=== PATIENT | female | born 1960 | race African-American/Black ===

== ENCOUNTER 2019-02-12 09:00 | Inpatient (IN) | payer MEDICARE, MEDICAID ==
[2019-02-15] MEDS ORDERED: METOCLOPRAMIDE 10 MG TABLET PO ONE (06:00)
[2019-02-15] MEDS ORDERED: ACETAMINOPHEN 1,000 MG/100 ML BTL IVPB ONE (06:00)
[2019-02-15] MEDS ORDERED: CEFAZOLIN 2 Gram 2 GM/50 ML BAG IVPB SCH (06:00)
[2019-02-15] MEDS ORDERED: FAMOTIDINE 20MG TABLET PO ONE (06:00)
[2019-02-15] MEDS ORDERED: SCOPOLAMINE 1 PATCH TDSY TD ONE (06:00)
[2019-02-15] MEDS ORDERED: CELECOXIB 100 MG CAPSULE PO ONE (06:00)
[2019-02-15] MEDS ORDERED: TRAMADOL HCL 50 MG TABLET PO PRN ×2 (08:03)
[2019-02-15] MEDS ORDERED: AL HYDROX/MAG HYDROX 30ML UD PO PRN (08:03)
[2019-02-15] MEDS ORDERED: KETOROLAC 30 MG/ML VIAL IVP PRN ×2 (08:03)
[2019-02-15] MEDS ORDERED: PROMETHAZINE HCL 12.5 MG in 0.9 % SODIUM CHLORIDE 100ML 50 ML IVPB PRN (08:03)
[2019-02-15] MEDS ORDERED: BISACODYL 10 MG SUPP RC PRN (08:03)
[2019-02-15] MEDS ORDERED: METOCLOPRAMIDE HCL 10 MG/2 ML VIAL IVP PRN (08:03)
[2019-02-15] MEDS ORDERED: ACETAMINOPHEN 325 MG TAB PO PRN (08:03)
[2019-02-15] MEDS ORDERED: DIPHENHYDRAMINE HCL 25 MG CAPSULE PO PRN (08:03)
[2019-02-15] MEDS ORDERED: HYDROCODONE/APAP 7.5/325MG TABLET PO PRN (08:03)
[2019-02-15] MEDS ORDERED: MAGNESIUM HYDROXIDE 30 ML UDC PO PRN (08:03)
[2019-02-15] MEDS ORDERED: ACETAMINOPHEN W/ CODEINE 300MG/30MG TABLET PO PRN ×2 (08:03)
[2019-02-15] MEDS ORDERED: HYDROMORPHONE HCL 2 MG/ML VIAL IM PRN ×2 (08:03)
[2019-02-15] MEDS ORDERED: ACETAMINOPHEN W/ CODEINE 300MG/60MG TABLET PO PRN ×2 (08:03)
[2019-02-15] MEDS ORDERED: HYDROCODONE/APAP 5/325MG TABLET PO PRN ×2 (08:03)
[2019-02-15] MEDS ORDERED: ONDANSETRON HCL IV 4 MG/2 ML VIAL IVP PRN (08:03)
[2019-02-15] MEDS ORDERED: NALOXONE 0.4 MG/1 ML VIAL IVP PRN (08:03)
[2019-02-15] MEDS ORDERED: ZOLPIDEM TARTRATE 5 MG TABLET PO PRN (08:03)
[2019-02-15] MEDS ORDERED: ALPRAZOLAM 1 MG TAB PO ONE (08:30)
[2019-02-15] MEDS ORDERED: RINGERS SOLUTION,LACTATED 1,000 ML IV ONE ×3 (08:55→12:08)
[2019-02-15] MEDS: VANCOMYCIN HCL 1 MG in DEXTROSE 5 % IN WATER 250 ML IVPB ONE ×4 (09:02→09:09)
[2019-02-15 09:15] LABS: ABO GROUP O; RH TYPE POSITIVE
[2019-02-15 09:16] LABS: ANTIBODY SCREEN NEGATIVE (NEGATIVE)
[2019-02-15] MEDS ORDERED: BUPIVACAINE LIPOSOME 266MG/20ML VIAL SQ ONE (10:59)
[2019-02-15] MEDS ORDERED: BUPIVACAINE 0.5% W/EPI MPF 30 ML VIAL SQ ONE (10:59)
[2019-02-15] MEDS ORDERED: VANCOMYCIN HCL 3,000 MG in RINGERS SOLUTION,LACTATED 3,000 ML IVPB ONE (10:59)
[2019-02-15] MEDS ORDERED: ALBUTEROL HFA 8 GM INHALER INH PRN (13:25)
[2019-02-15] MEDS: HYDROCODONE/APAP 7.5/325MG TABLET PO PRN ×2 (14:07→21:19)
[2019-02-15] MEDS ORDERED: VANCOMYCIN HCL 1 GM VIAL IVPB ONE (15:30)
[2019-02-15] MEDS ORDERED: TRANEXAMIC ACID 1,000 MG/10 ML ML IV ONE (15:30)
[2019-02-15] MEDS ORDERED: MIDAZOLAM HCL 2MG/2ML VIAL IV ONE (15:49)
[2019-02-15] MEDS ORDERED: EPHEDRINE SULFATE 50 MG/ML ML IV ONE (15:49)
[2019-02-15] MEDS ORDERED: PROPOFOL 10 MG/ML VIAL IV ONE (15:49)
[2019-02-15] MEDS ORDERED: 0.9 % SODIUM CHLORIDE 10 ML VIAL IVP ONE (15:49)
[2019-02-15] MEDS ORDERED: FENTANYL PF 100MCG/2ML VIAL IV ONE (15:49)
[2019-02-15] MEDS ORDERED: LIDOCAINE 2% MDV (20MG/ML) 20ML VIAL IV ONE (15:49)
--- NOTE | 2019-02-15 17:24 | Rehab Evaluation ---
Patient Information - Patient Information Diagnosis: L hip OA Ordered Treatment: PT Evaluate and Treat Status: Initial Evaluation Surgery: Yes (L THR) Date of Surgery: 02/15/19 Past Medical/Surgical Hx: PAST MEDICAL/SURGICAL HISTORY Past Surgical History C SCOPE PMH - Respiratory Hx Respiratory Disorders Yes Hx Chronic Obstructive Yes: MILD RARELY USES INHALER Pulmonary Disease (COPD) Comment: SMOKERS COUGH PMH - Cardiovascular Hx Cardiovascular Disorders No Exercise Tolerance Fair PMH - Neuro Hx Neurological Disorders No PMH - GI Hx Gastrointestinal Disorders Yes Comment: CHRONIC CONSTIPATION LAXATIVE DEPENDENT PMH - Hx Genitourinary Disorders No Hx Age of Menopause 51 PMH - Endocrine Hx Endocrine Disorders No Hx Diabetes No Hx Thyroid Disease No PMH - Musculoskeletal Hx Musculoskeletal Disorders Yes Hx Arthritis Yes Comment: RIGHT SHOULDER PAIN RECENTLY PMH - Psych Hx Psychiatric Problems Yes Hx Anxiety Yes: ON MEDS PMH - Hematology/Oncology Hx Hematology/Oncology No Disorders Premorbid Status: Detail (The patient was independent with all mobility prior to surgery.) Social History: Detail (The patient lives alone in a 2 story house with 4 steps at the enterance and 2 railings. The bathroom is equipped with a tub/shower combination,shower bench, standard toilet with a riser seat. Grab bars are present in the shower but not near the toilet. The patient has a front wheeled walker.) Precautions: Stamps, Fall, Other (WBAT, THR precautions) - Time With Patient Total Time Spent With Patient (Min): 20 Treatment Procedures: Detail (Initial Evaluation, bed mobility) Subjective Information - Subjective Information Per Patient (The patient has complaints of L hip pain but did not rate pain using 0-10 pain scale. The patient complained of lightheadedness when sitting up.) Objective Data - Mental Status Patient Orientation: Oriented x3 - Visual Perception Appears within normal limits for therapeutic activities - ROM Not within normal limits (The patient's L hip is within total hip precautions.) - Strength/Tone Not within normal limits (The patient's L LE strength was not tested s/p surgery however was functional ie: patient was able to lift L LE in and out of bed. The paitent's R LE strength was WNL.) - Bed Mobility Independent (The patient was independent with supine to and from sit transfer and scooting up in bed with use of trapeze.) - Transfers Needs Assist (The patient sat on the edge of the bed and complained of lightheadedness. The patient sat on the edge of the bed for 5 minutes and lightheadedness did not subside. The patient began sweating and requested to lie down.) - Balance Balance Sitting: Good - Gait Detail (The patient did not ambulate due to lightheadedness.) Therapy Assessment - Therapy Assessment Detail (The patient was independent with bed mobility but was unable to stand or ambulate due to symptoms of lightheadedness. The patient was moving in pain and time and required verbal reminders to maintain THR. The patient was left in a supine position with pillow in place to maintain THR alignment. Feel the patient will progress well once symptoms of lightheadedness subsides.) Patient Education - Patient Education Teaching Topic: Precautions (The patient requires verbal cues to maintain hip precautions.) Response: Reinforcement Needed Teaching Method: Discussion Teaching Recipient: Patient, Family Barriers To Learning: Age Related Problem List - Problem List Physical Therapy Problem List: Detail (1) Decreased L LE strength 2) Impaired ambulation and transfers s/p THR) Goals - Goals Physical Therapy Goals: 1) The patient will ambulate independently with appropriate assistive device community distances, WBAT on the L LE. 2) The patient will ambulate on stairs using proper technique with supervision for safety. 3) The patient will demonstrate good understanding of THR precautions and be independent with THR HEP. Plan - Plan Physical Therapy Plan: PT 1-2 times a day until all inpatient PT goals have been met, for gait and transfer training and instruction in THR HEP.
[2019-02-15] MEDS: DEXTROSE 5 % AND 0.9 % NACL 1,000 ML IV PRN (19:30)
[2019-02-15] MEDS: VANCOMYCIN HCL 1,000 MG in 0.9 % SODIUM CHLORIDE 250ML 250 ML IVPB SCH (21:11)
[2019-02-15] MEDS: DOCUSATE SODIUM 100 MG CAPSULE PO SCH (21:13)
[2019-02-15] MEDS: ALPRAZOLAM 0.25 MG TABLET PO SCH (21:13)
[2019-02-15] MEDS: FERROUS SULFATE 325 MG TAB PO SCH (21:14)
[2019-02-16] MEDS: HYDROCODONE/APAP 7.5/325MG TABLET PO PRN ×2 (03:23→10:15)
[2019-02-16] MEDS: DEXTROSE 5 % AND 0.9 % NACL 1,000 ML IV PRN (05:26)
--- NOTE | 2019-02-16 05:30 | RADIOLOGY REPORT ---
EXAM: LEFT HIP HISTORY: POSTOP LEFT HIP ARTHROPLASTY. TECHNIQUE: A single AP view of the left hip was obtained. Comparison: None. FINDINGS: Left hip total arthroplasty hardware appears intact and in expected alignment on this single view. No fracture visualized. Adjacent soft tissue lucencies likely represent postoperative soft tissue gas. IMPRESSION: ABOVE. JOB NUMBER: [id number] MTDD
[2019-02-16 06:28] LABS: HEMOGLOBIN 9.4 gm/dl (11.6-16.0)
[2019-02-16] MEDS: VANCOMYCIN HCL 1,000 MG in 0.9 % SODIUM CHLORIDE 250ML 250 ML IVPB SCH (08:17)
--- NOTE | 2019-02-16 09:57 | Physical Therapy Tx Note ---
Physical Therapy Tx Note - Treatment Note Tolerated: Good Total Time Spent With Patient: 25 Physical Therapy Tx Note: Detail (The patient was in bed when PT arrived and complaining of less pain then initially. Patient also had no complaints of lightheadedness. The patient was independent with supine to sit transfer with use of bed railings. The patient ambulated with front wheeled walker a distance of 108 feet x 1 WBAT on L LE independently. The patient was instructe to use strap for sit to supine transfer and completed transfer indpendently. The patient ambulated on 3 steps with use of one railing and folded walker using proper technique with supervision for safety. The patient completed the following THR exercises: heel slides, ankle pumps, quad sets, hamstrings sets, hip abduction supine and gluteal sets. The patient was able to indentify the hip precautions but required occasional verbal cues not to turn foot in. The patient has met all inpatient PT goals and is discharged from inpatient PT.) Physical Therapy Problem List: Detail (1) Decreased L LE strength 2) Impaired ambulation and transfers s/p THR) Physical Therapy Goals: 1) The patient will ambulate independently with appropriate assistive device community distances, WBAT on the L LE. (Goal Met). 2) The patient will ambulate on stairs using proper technique with supervision for safety.(Goal Met). 3) The patient will demonstrate good understanding of THR precautions and be independent with THR HEP. (Goal Met) Physical Therapy Plan: The patient has met all inpatient PT goals and is discharged from inpatient PT. Patient is to receive Home PT.
[2019-02-16] MEDS ORDERED: RIVAROXABAN 10 MG TABLET PO SCH (10:00)
[2019-02-16] MEDS ORDERED: CELECOXIB 100 MG CAPSULE PO SCH (10:00)
[2019-02-16] MEDS: DOCUSATE SODIUM 100 MG CAPSULE PO SCH (10:13)
[2019-02-16] MEDS: ALPRAZOLAM 0.25 MG TABLET PO SCH (10:13)
[2019-02-16] MEDS: FERROUS SULFATE 325 MG TAB PO SCH (10:14)
--- NOTE | 2019-02-16 10:35 | Rehab Evaluation ---
Patient Information - Patient Information Diagnosis: L hip OA Ordered Treatment: OT Evaluate and Treat Status: Initial Evaluation Surgery: Yes (L THR) Date of Surgery: 02/15/19 Past Medical/Surgical Hx: PAST MEDICAL/SURGICAL HISTORY Past Surgical History C SCOPE PMH - Respiratory Hx Respiratory Disorders Yes Hx Chronic Obstructive Yes: MILD RARELY USES INHALER Pulmonary Disease (COPD) Comment: SMOKERS COUGH PMH - Cardiovascular Hx Cardiovascular Disorders No Exercise Tolerance Fair PMH - Neuro Hx Neurological Disorders No PMH - GI Hx Gastrointestinal Disorders Yes Comment: CHRONIC CONSTIPATION LAXATIVE DEPENDENT PMH - Hx Genitourinary Disorders No Hx Age of Menopause 51 PMH - Endocrine Hx Endocrine Disorders No Hx Diabetes No Hx Thyroid Disease No PMH - Musculoskeletal Hx Musculoskeletal Disorders Yes Hx Arthritis Yes Comment: RIGHT SHOULDER PAIN RECENTLY PMH - Psych Hx Psychiatric Problems Yes Hx Anxiety Yes: ON MEDS PMH - Hematology/Oncology Hx Hematology/Oncology No Disorders Premorbid Status: Detail (The patient was independent with all mobility prior to surgery using a cane. She had home health care 2x/day every day including weekends to assist with showering, dressing, and all IADLs.) Social History: Detail (The patient lives alone in a 2 story house with 4 steps at the enterance and 2 railings. The bedroom and bath are on the main level with laundry basement. The bathroom is equipped with a tub/shower combination, shower chair, grab bar in the shower, a hand-held shower, and a standard toilet with a riser seat. She has a raised toilet seat with grab bars that she plans to have her son put over the toilet at [place]. She also has a beef grader. The patient has a front wheeled walker and a cane.) Precautions: Childs, Fall, Other (WBAT, THR precautions) - Time With Patient Total Time Spent With Patient (Min): 42 (1 eval 1 ADL) Treatment Procedures: Detail (ot eval: low complexity) Subjective Information - Subjective Information Per Patient (ok to see per SWEETIE Bull. Pt agreeable to OT eval and Tx. Friend present.) Objective Data - Pain Pain Present: Yes Pain Scale Used: Numeric (1 - 10) (6/10 L hip - Pt just received pain meds) - Mental Status Patient Orientation: Oriented x3 - Visual Perception Appears within normal limits for therapeutic activities - ROM Within normal limits - Strength/Tone Within normal limits - Coordination Appears within normal limits for therapeutic activities - Bed Mobility Independent (supine >< sit indep with increased time) - Transfers Independent (sit >< stand to FWW) - Balance Balance Sitting: Good Balance Standing: Good - Sensation Intact - Gait Detail (Fxl amb within bedroom with FWW and supervision) - ADL's/IADL's Detail (OT educ. Pt on hip prec., adaptive tech and use of AE for LB dress, mod. tech for sit >< stand from low surfaces to maintain hip prec., AD for toilet for bathroom and safe use - RTS, GB, shower chair, mod. techs for kitchen , bathroom, and laundry safety at home with use of FWW. Pt demos and verbalizes understanding throughout Tx. Will have 24/7 assist from son and/or sister at [place] and daily HHC per Pt.) Therapy Assessment - Therapy Assessment Detail (Pt demos safety and modified indep. with LB dressing and fxl ambulation and TFs and verbalizes safe tech. for home tasks while maintaining L LYUBOV prec.) Problem List - Problem List Physical Therapy Problem List: Detail (1) Decreased L LE strength 2) Impaired ambulation and transfers s/p THR) Occupational Therapy Problem List: Detail (No further inpatient OT needs identified.) Goals - Goals Physical Therapy Goals: 1) The patient will ambulate independently with appropriate assistive device community distances, WBAT on the L LE. (Goal Met). 2) The patient will ambulate on stairs using proper technique with supervision for safety.(Goal Met). 3) The patient will demonstrate good understanding of THR precautions and be independent with THR HEP. (Goal Met) Occupational Therapy Goals: No further inpatient OT needs/goals identified. Prognosis - Prognosis Good Plan - Plan Physical Therapy Plan: The patient has met all inpatient PT goals and is discharged from inpatient PT. Patient is to receive Home PT. Occupational Therapy Plan: No further inpatient OT needs identified. Pt has all necessary equipment. Rec DC home with son and/or sister assist PRN upon DC. DC inpatient OT services. Thank you for this referral.
[2019-02-16] MEDS ORDERED: 0.9 % SODIUM CHLORIDE 10 ML VIAL IVP ONE (13:19)
[2019-02-16] MEDS ORDERED: TRANEXAMIC ACID 1,000 MG/10 ML ML IV ONE (13:19)
--- NOTE | 2019-02-18 08:51 | Operative Note ---
DATE OF SERVICE: 02/15/2019. DATE OF SURGERY: 02/15/2019. PREOPERATIVE DIAGNOSIS: End-stage left hip arthrosis. POSTOPERATIVE DIAGNOSIS: End-stage left hip arthrosis. OPERATION: Left total hip arthroplasty, uncemented. SURGEON: Evans El MD. ANESTHESIA: Spinal. ANESTHESIA PROVIDER: Zev Mccurdy CRNA. COMPLICATIONS: None. ESTIMATED BLOOD LOSS: 200 mL. OPERATIVE FINDINGS: Severe [id number] hip arthrosis. COMPONENTS PLACED: A [employer] Synergy total hip arthroplasty system, proximally porous coated, size 14 femoral stem, high offset, with a 52 mm 3 hole Reflection acetabular shell component with 1 acetabular screw, 2 screw caps, a centrally threaded screw cap, a 35 degree high-crosslinked polyethylene liner, and a 32 + 0 mm Oxinium femoral head component, and then 1 g vancomycin powder. INDICATION FOR OPERATION: This is a 59-year-old female who has had persistent pain and dysfunction her hips for several years. Both hips failed nonoperative treatment. Scheduled for hip replacement. I explained all risks and benefits of surgery in detail for her diagnosis and procedures, including, but not limited to, infection, nerve injury, vessel injury, persistent pain, stiffness, numbness, tingling, blood clot, need for anticoagulation to prevent blood clots and the risks associated with these medications, need for further procedures, limb length discrepancy. PROCEDURE: The patient was brought to the OR. After spinal anesthesia was induced, her right leg was placed in right leg menjivar. The left hip and left lower extremity were prepped and draped in a sterile fashion. Prepped using ChloraPrep and draped. An intraoperative time out. Next, a posterior approach was marked over the gluteus area. It was infiltrated with 0.5% Marcaine with epi/tranexamic acid/Exparel mixture. Skin and subcutaneous tissue dissected down to the gluteal fascia. Gluteal fascia split longitudinally. Subgluteal plane was bluntly dissected. Self retainer was brought in. Dissection down to the subgluteal plane. Brought in the self retainer. Identified the sciatic nerve with care to protect it at all times. Released the capsule and short external rotators, incised the capsule in inverted T-fashion, then dislocated the femoral head. Femoral head severely deformed. There was no cartilage, and bullet-shaped deformity. Resection the femoral head about 1.5 cm above the lesser trochanter. Took off the short external rotator tendon stumps. Inserted the box osteotome. Then started reaming in 1 mm increments, first one by hand, until we reamed up to a size 14. We stopped there. We broached a 12 calcar plane, then a 13 and a 14, and had good fit, and we stopped there. Next, attention turned to the acetabulum. Released the capsule anteriorly and placed a retractor there, and periacetabular retractor. We removed some of the acetabulum, labrum around the periphery of the hip. Next, started reaming in 1 mm increments, 45 degrees inclination, 20 degrees anteversion until we reamed up to a size 51 mm shell. We tried a 52 mm and had a good fit, and we stopped there, and that is the one that we utilized. Next, we changed gloves, brought in clean sheet, copiously irrigated the acetabulum. Then we impacted down the real acetabular shell using the helicopter guide in same orientation, 45 degrees inclination, 20 degrees anteversion, until it was flush medially. Next, drilled the posterior central superior quadrant screw hole, measured a 40 mm screw, inserted the screw. It had excellent purchase and a good bone. Next, we placed the trial liner, placed the trial stem, did a trial reduction. Best combination of range of motion, stability, and leg lengths was with a high- offset, 35-degree hooded liner, 32 + 0 mm head. This allowed for symmetric leg lengths, good abductor tensioning without over-stopping, and stability with extension and external rotation. This was the size we used. Next, we removed all trial components, irrigated the acetabulum copiously, placed 2 screw caps, center threaded screw cap, and impacted down the real 35- degree hooded, high-crosslinked polyethylene liner with the bains in the posterior superior quadrant, tapped that down until interlocked. Next, we irrigated the femoral canal copiously and then impacted down the real press fit stem in 15 degrees of anteversion as we broached until it was flush with our medial and proximal bead line. Cleaned and dried the trunnion. We placed vancomycin powder in the canal and around the stem, too, during impaction and entry. Next, impacted down the femoral head component, reduced the hip. Final range of motion revealed the same. Leg lengths were equal. Irrigated copiously. Closed the gluteal fascia with running #2 Stratafix suture and closed the skin with 2-0 Vicryl, and a provisional sterile dressing applied with Acticoat. It will be converted to a STUART dressing prior to discharge. Patient tolerated the procedure well. No intraoperative complications. Placed an abduction pillow. Postop x-ray revealed good orientation of components. CC: MD SIL Noe
== END 2019-02-16 13:20 | disposition home health service (06) | DRG 470 ==
LOC: MEDSURG 02-15 07:51
PROVIDERS: ADMIT Orthopaedic Surgery; ATTEND Orthopaedic Surgery
PROC: 0SRB06A Replacement of Left Hip Joint with Oxidized Zirconium on Polyethylene Synthetic Substitute, Uncemented, Open Approach (ICD-10-PCS; principal; 2019-02-15 10:00)
DX: M16.12 Unilateral primary osteoarthritis, left hip (principal); J44.9 Chronic obstructive pulmonary disease, unspecified
CPT/HCPCS: 85014; 85018; 86850; 86900; 86901; 94760; 97110; 97530; 97535; C1776; J1885; J2405; J7042; J7050; J7060; J7120